=== PATIENT | female | born 1970 | race African-American/Black ===

== ENCOUNTER 2016-06-30 16:10 | Emergency (ER) | payer BC, MEDICAID ==
[2016-06-30] MEDS ORDERED: KETOROLAC 60 MG/2 ML VIAL IM ONE (18:32)
== END 2016-06-30 19:06 | disposition home or self-care (01) ==
LOC: FASTR 16:10
DX: G89.29 Other chronic pain (principal); M25.552 Pain in left hip; M25.562 Pain in left knee
CPT/HCPCS: 96372